=== PATIENT | male | born 1945 | race Caucasian/White ===

== ENCOUNTER 2024-05-25 10:02 | Emergency (ER) | payer MEDICARE, BC, SELFPAY ==
--- NOTE | ~2024-05-25 | XR_ITS ---
EXAMINATION: XR chest 2V DATE: 05/25/2024 10:40 INDICATION: Cough TECHNIQUE: PA and lateral views of the chest were obtained. COMPARISON: None FINDINGS: Large hiatal hernia which appears to contain both air-fluid level likely within the stomach as well a s a loop of bowel, likely the transverse colon. Calcified nodule in the lateral left midlung zone con sistent with old granulomatous disease. No other airspace opacities, pulmonary edema, pleural effusio n or pneumothorax. Heart size is normal. At least moderate severity right glenohumeral osteoarthritis with loose osteochondral body in the deep subscapular recess. Prior distal right clavicle resection. IMPRESSION: 1. No acute cardiopulmonary disease. 2. Large hiatal hernia which appears to contain both stomach and a segment of transverse colon. Reviewed, dictated and finalized at location A. IMPRESSION: 1. No acute cardiopulmonary disease. 2. Large hiatal hernia which appears to contain both stomach and a segment of t ransverse colon.
--- OUTSIDE RECORDS SUMMARY | 2024-05-25 10:12 | XMS_ITS | Clinical Summary ---
Author Organization [facility] Address [address] [place] [address] Care Team Providers Care Cigar Making Supervisor Name Role Phone Unavailable Primary Care Provider Unavailabl e Source Comments [facility],non-owned Affiliates and Associated Physician Practices is amultiple site organization consisting of ambulatory clinics and hospital sitesin [place], [place], [place] and [place]. This disclosure is being madepursuant to the Care Everywhere program and may not contain all information available regarding this patient. Last updated [email or web address] [email or web address] Social History Tobacco Use Types Packs/Day Years Used Date Smoking Tobacco: Never Assessed Sex and Gender Information Value Date Recorded Sex Assigned at Not on file Legal Sex Male 11:04 AM CDT Gender Identity Not on file Sexual Orientation Not on file Plan of Treatment Health Maintenance Due Date Last Done Comments HEPATITIS C SCREENING 05/24/1965 DTAP/TDAP/TD VACCINES (1 - Tdap) 05/28/1966 PNEUMOCOCCAL VACCINE 50+ (1 of 1 - PCV) 05/28/1997 ZOSTER VACCINE (1 of 2) 05/28/1997 Respiratory Syncytial Virus (RSV) Vaccine Pt: or over 60 yrs (1 - 1-dose 75+ series) 05/28/2022 COVID-19 VACCINE ( - season) 2023 DEPRESSION SCREENING 02/07/2024 INFLUENZA VACCINE (Season Ended) 2024 11/15/2017, 11/30/2016, 12/02/2015, Additional history exists HEPATITIS B VACCINE Aged Out No longe r eligible based on patient's age to complete this topic HIB VACCINE Aged Out No longer eligi ble based on patient's age to complete this topic HPV VACCINE Aged Out No longer eligi ble based on patient's age to complete this topic MENINGOCOCCAL (Group B) VACCINE SHARED DECISION-MAKING Aged Out No longer eligible based on patient's age to complete this topic MENINGOCOCCAL GROUPS A/C/Y/W VACCINE Aged Out No longer eligible based on patient's age to complete this topic Insurance [facility]
--- OUTSIDE RECORDS SUMMARY | 2024-05-25 10:13 | XMS_ITS | Clinical Summary ---
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 0 0 12/26/19 14 Active multivitamin capsule Take 1 capsule by mouth daily Active acetaminophen (TYLENOL) 500 mg tablet Take 1 tablet (500 mg total) by mouth every 6 (six) hours as needed for pain 07/27/19 19 Active PreviDent 5000 Booster Plus 1.1 % paste 09/26/19 21 Active Lactobacillus acidophilus (PROBIOTIC ORAL) Take by mouth Active pravastatin (PRAVACHOL) 40 mg tablet Take 1 tablet (40 mg total) by mouth daily 90 tablet 3 01/04/20 23 Active omeprazole (PriLOSEC) 40 mg capsuleIndicat ions:Hiatal hernia with GERD Take 1 capsule (40 mg total) by mouth daily 90 capsule 3 07/31/19 24 Active amLODIPine (NORVASC) 2.5 mg tablet TAKE 1 TABLET(2.5 MG) BY MOUTH DAILY 90 tablet 05/07/19 25 Active celecoxib (CeleBREX) 200 mg capsule TAKE 1 CAPSULE(200 MG) BY MOUTH TWICE DAILY NEEDED FOR PAIN. DO NOT TAKE FOR MORE THAN 7 DAYS CONSECUTIVELY 60 capsule 1 05/09/19 25 Active celecoxib (CeleBREX) 200 mg capsule Take 1 capsule (200 mg total) by mouth 2 (two) times a day as needed for pain Do not take for more than 7 days consecutively. 60 capsule 1 09/06/19 24 2024 Discontinued amLODIPine (NORVASC) 2.5 mg tablet TAKE 1 TABLET(2.5 MG) BY MOUTH DAILY 90 tablet 01/15/20 24 2024 Discontinued Active Problems Problem Noted Date Diagnosed Date IFG (impaired fasting glucose) 01/23/2024 Encounter for screening colonoscopy 02/03/2023 Essential hypertension 01/26/2023 Benign prostatic hyperplasia with nocturia 01/26 Overview (01/26/2023): didn't tolerate Flomax nocturia continues with weak stream recommended lashanda hollins Encounter for Medicare annual wellness exam 01/07 Assessment & Plan (01/23/2024 3:22 PM DISPOSAL PLANT OPERATOR): A(n) yearly Medicare Annual Wellness Visit has been performed today. Micah Golden is not up to date on screening tests. He is in need of Hepatitis B screen. He is not up to date on needed preventative vaccinations. We discussed healthy lifestyle habits, educational material has been given. Medications reviewed, changes documented as per the medical record and discussed with patient along with risks vs benefits. Specific topics reviewed: drugs, ETOH, and tobacco, importance of regular dental care, importance of regular exercise, importance of varied diet, limit TV, media violence, minimize junk food, and seat belts. Return in 6 months Assessment & Plan (01/26/2023 10:05 AM DISPOSAL PLANT OPERATOR): A(n) yearly Medicare Annual Wellness Visit has been performed today. Micah Golden is not up to date on screening tests. He is in need of Colon cancer screening. He is not up to date on needed preventative vaccinations; He is in need of Covid-19 (booster). We discussed healthy lifestyle habits, educational material has been given. Medications reviewed, changes documented as per the medical record and discussed with patient along with risks vs benefits. Return in 6 months Assessment & Plan (01/31/2022 11:26 AM DISPOSAL PLANT OPERATOR): A(n) yearly Medicare Annual Wellness Visit has been performed today. Micah Golden is up to date on screening tests. He is in need of None- no screening indicated at this time. He is not up to date on needed preventative vaccinations; He is in need of Covid-19 (booster). Continue current regimen Labs reviewed, look well. The blood counts have normalized Doing well Assessment & Plan (01/28/2021 1:09 PM DISPOSAL PLANT OPERATOR): Discussed lifestyle modifications, diet and exercise. Routine blood work ordered/reviewed today. Yearly vision and dental examinations. Medicare wellness completed - uptodate on screening and vaccines At risk for acute ischemic cardiac event 019 Assessment & Plan (09/17/2019 8:19 AM CDT): Continue focusing on lowering triglycerides and LDL. Decrease fatty/fried food and keep increasing your vegetables from your garden. Continue on the Pravastatin and baby aspirin Hiatal hernia with GERD 07/26/2018 Assessment & Plan (07/10/2020 4:42 PM CDT): Continuing omeprazole Assessment & Plan (09/17/2019 8:16 AM CDT): Discussed/ordered labs, Condition is stable encouraged healthy, low carbohydrate lifestyle and at least 150min/week of exercise, continue on Omeprazole Continue on current meds, encouraged healthy diet and exercise Avoid trigger foods including: carbonated beverages, caffeine, spicy, fried foods, tomatoes, cucumbers, and mint Avoid eating/drinking anything for at least 2 hours before bed. Sleep with bed propped. Discussed increased risk of cdif and vit B12 deficiency with alf use of PPI with pt, would like to remain on medication at this time Pure hypercholesterolemia 06/22/2013 Overview (05/11/2016): PURE HYPERCHOLESTEROLEM Assessment & Plan (07/26/2021 6:43 PM CDT): BP is well controlled Liver function, kidney function, blood counts are acceptable Blood sugar is good Cholesterol well controlled, continuing pravastatin 40 mg Assessment & Plan (01/28/2021 1:07 PM DISPOSAL PLANT OPERATOR): HPI: Condition is stable A&P: Discussed/ordered labs, encouraged healthy, low carbohydrate lifestyle and at least 150min/week of exercise, pt states that he thinks he is having some side effects from statin - will decrase from 80 mg to 40 mg. Assessment & Plan (07/10/2020 4:42 PM CDT): Status: controlled Current regimen: pravastatin 80 mg qhs Side effects: None reported Liver function tests: Results for MICAH GOLDEN ( ) as of 07/10/2020 16:42 Ref. Range 06/24/2020 08:11 Alk phos Latest Ref Range: 40 - 130 Units/L 82 AST Latest Ref Range: 10 - 50 Units/L 30 ALT Latest Ref Range: 7 - 55 Units/L 22 Assessment & Plan (09/17/2019 8:20 AM CDT): Continue focusing on lowering triglycerides and LDL. Decrease fatty/fried food and keep increasing your vegetables from your garden. Continue on the Pravastatin and baby aspirin Arthritis of knee 06/22/2013 Overview (05/11/2016): Arthritis of Knee Assessment & Plan (09/17/2019 8:16 AM CDT): Discussed/ordered labs, Condition is stable encouraged healthy, low carbohydrate lifestyle and at least 150min/week of exercise, continue on Tylenol as needed Dupuytren's contracture 06/22/2013 Overview (05/11/2016): Dupuytren contracture Nondependent alcohol abuse, continuous drinking behavior 06/22/2013 Overview (05/12/2016): ALCOHOL ABUSE-CONTINUOUS Assessment & Plan (01/28/2021 1:02 PM DISPOSAL PLANT OPERATOR): Discussed reducing amount of alcohol intake. Pt not ready at this time. Discussed at least cutting down from 6 to 5 beers daily , and slow wean. 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, ORGANIC ORIGN Rosacea 06/22/2013 Overview (05/13/2016): Rosacea Resolved Problems Problem Noted Date Diagnosed Date Resolved Date Iron deficiency anemia due t o chronic blood loss 11/30/2016 06/07/2017 Surgical follow-up care 06/11/2009 05/03/2017 Knee pain 10/20/2008 06/07/2017 Immunizations Immunization Administration Dates Next Due Influenza, Quad, Adjuvantate d, Intramuscular 12/08/2022,12/07/2021,11/20/2020 Influenza, Quadrivalent, Hig h Dose, Preservative Free, Intrr 11/20/2020,11/19/2019 Influenza, Quadrivalent, Spl it, Intramuscular 10/16/2014 Influenza, Trivalent, Adjuva nted, Intramuscular 12/12/2023,11/14/2017 Influenza, Trivalent, High D ose, Split, Preservative Free, Intramuscular 12/01/2018,11/30/2016,12/02/2015 Influenza, Unspecified 10/12/2022(Deferr ed: Patient Refused),02/06/2022(Deferred: Patient Refused),11/15/2017 Pfizer SARS-CoV-2 Monovalent Vaccination (12+ Yrs) PURPLE 12/14/2020,05/26/2020,04/28/2020 Pneumococcal Conjugate PCV 13 11/30/2016 Pneumococcal Polysaccharide PPV23 07/26/2018 Tdap 04/26/2010 ZOSTER Recombinant 07/12/2022,05/17/2022 Surgical History Surgery Date Site/Laterality Comments OTHER SURGICAL HISTORY 1977 neck fracture: fusion C1 C2 OTHER SURGICAL HISTORY 2007 OA right knee with meniscal tear: arthroscopy OTHER SURGICAL HISTORY 2008 OA right knee: TKR OTHER SURGICAL HISTORY 2009 OA left knee: total knee replacement OTHER SURGICAL HISTORY 2016 Upper gastrointestinal bleed with melena: Medical Management KNEE ARTHROPLASTY Left Knee replacement Medical History Medical History Date Comments Hx Other Medical neck fracture Hx Other Medical OA right knee w ith meniscal tear Hx Other Medical OA right knee Hx Other Medical OA left knee Hx Other Medical Rt. total knee replacement 1999; Comments: RADHA 12/26/2013 - Hx Other Medical Lt. total knee replacement 2000; Comments: [facility] 12/26/2013 - Hx Other Medical Cervical fx. wi th fusion 1977.; Comments: [facility] 12/26/2013 - Hx Other Medical Right AC resect ion with anterior acromioplasty on; Comments: [facility] 01/20/2014 - Hx Other Medical Upper gastroint estinal bleed with melena; Outcome: improved Hx Other Medical 01-12-16 Left un i-compartmental knee removal/left t; Comments: RADHA 01/25/2016 - Hiatal hernia with GERD 07/26/2018 Rosacea 06/22/2013 Rosacea Nondependent alcohol abuse, continuous drinking behavior 06/22/2013 ALCOHOL ABUSE-CONTINUOUS Pure hypercholesterolemia 06/22/2013 PURE H YPERCHOLESTEROLEM Dupuytren's contracture 06/22/2013 Dupuytre n contracture Arthritis of knee 06/22/2013 Arthritis of K nee Family History Medical History Relation Name Comments Lung cancer Father Cancer -lung; Breast cancer Mother Cancer -breast ; Other Other 1 Family history of Mother at age 90 from natural causes.; Other Other 2 Family history of Father at age 54 from lung cancer.; Relation Name Status Comments Father Mother Other 1 Other 2 Social History Tobacco Use Types Packs/Day Years Used Date Smoking Tobacco: Former Cigarettes 965 - 1984 Smokeless Tobacco: Never Tobacco Cessation:Counseling Given: Not Answered Alcohol Use Standard Drinks/Week Comments Yes 44 (1 standard drink = 0.6 oz pu re alcohol) Humiliation, Afraid, Rape, and Kick questionnair e Answer Date Recorded Fear of Current or Ex-Partner No Emotionally Abused No 01/24/2019 Physically Abused No 01/24/2019 Sexually Abused No 01/24/2019 Social Connection and Isolat ion Panel [NHANES] Answer Date Recorded Frequency of Communication w ith Friends and Family More than three times a week 01/24/2019 Frequency of Social Gatherin gs with Friends and Family Not on file 01/24/2019 Attends Anabaptism Services Never 01/24 Active Member of Clubs or Organizations Yes 01/24/2019 Attends Club or Organization Meetings 1 to 4 thom es per year 01/24/2019 Marital Status 01/24/2019 AUDIT-C Answer Date Recorded Q1: How often do you have a drink containing alcohol? 4 or more times a week 06/21/2023 Q2: How many drinks containi ng alcohol do you have on a typical day when you are drinking? 5 or 6 Q3: How often do you have si x or more drinks on one occasion? Daily or almost daily 06/21/2023 Overall Financial Resource Strain (CARDIA) Answe r Date Recorded Difficulty of Paying Living Expenses Not hard at all 01/24/2019 PHQ-2 Answer Date Recorded PHQ-2 Total Score (If total score is 3 or more points, staff should administer the PHQ-9) 0 01/23/2024 [facility] - Occupational Stress Questionnaire Answer Date Recorded Feeling of Stress Not at all 01/24/2019 Hunger Vital Sign Answer Date Recorded Worried About Running Out of Food in the Last Ye ar Never true 01/24/2019 Ran Out of Food in the Last Year Never true 01/24/2019 PRAPARE - Transportation Answer Date Re corded Lack of Transportation (Medical) No 01/24/2019 Lack of Transportation (Non-Medical) No 01/24/2019 Personal Safety Answer Date Recorded Have you ever been in or are you currently in a harmful physical or emotional relationship or is someone making you feel afraid or unsafe? Denies 06/21/2023 Education Answer Date Recorded What is the highest level of school you have completed or the highest degree you have received? Some college, no degree 01/24/2019 Sex and Gender Information Value Date Recorded Sex Assigned at Not on file Legal Sex Male 12:37 AM DISPOSAL PLANT OPERATOR Gender Identity Not on file Sexual Orientation Not on file Obstetrics History Last Filed Vital Signs Vital Sign Reading Time Taken Comments Blood Pressure 118/80 01/23/2024 3:16 PM DISPOSAL PLANT OPERATOR Pulse 78 01/23/2024 3:16 PM DISPOSAL PLANT OPERATOR Temperature 35.9 C (96.7 F) 01/23/2024 3:16 PM DISPOSAL PLANT OPERATOR Respiratory Rate 18 01/23/2024 3:16 PM DISPOSAL PLANT OPERATOR Oxygen Saturation 95% 01/23/2024 3:16 PM DISPOSAL PLANT OPERATOR Inhaled Oxygen Concentration - - Weight 81.6 kg (180 lb) 01/23/2024 3:16 PM DISPOSAL PLANT OPERATOR Height 172.7 cm (5' 8 ) 01/23/2024 3:16 PM DISPOSAL PLANT OPERATOR Body Mass Index 27.37 01/23/2024 3:16 PM DISPOSAL PLANT OPERATOR Plan of Treatment Health Maintenance Due Date Last Done Comments Hepatitis B Screening 05/28/1963 DTaP/Tdap/Td Vaccine (2 - Td or Tdap) 04/26/2020 04/26/2010 Covid-19 Vaccine (2023-2 5 season) 2024 12/12/2023, 06/16/2022, 12/14/2020, Additional history exists Depression Screening 01/22/2025 01/23/2024, 07/31/2023, 01/26/2023, Additional history exists Fall Risk Assessment 01/22/2025 01/23/2024, 06/21/2023, 01/26/2023, Additional history exists Well Visit 65+ 01/22/2025 01/23/2024, 01/07, 01/26/2022, Additional history exists Pneumococcal vaccine 65+ Completed 07/26/2018, 11/07 Hepatitis C Screening Completed 07/17/2019 Zoster Vaccine Completed 07/12/2022, 05/17/2022 Colon Cancer Screening-CT Colonography Discontinued 06/21/2023, 11/30/2012, 11/30/2012 Colon Cancer Screening-Colonoscopy Discontinued 06/21/2023, 11/30/2012, 11/30/2012 Colon Cancer Screening-DNA Stool Discontinued 06/21/2023, 11/30/2012, 11/30/2012 Colon Cancer Screening-FIT Discontinued 06/20, 12/14/2016, 11/30/2012, Additional history exists Colon Cancer Screening-FOBT Discontinued 06/06, 12/14/2016, 11/30/2012, Additional history exists Colon Cancer Screening-Sigmoidoscopy Discontinued 06/21/2023, 11/30/2012, 11/30/2012 Colorectal Cancer Screening Discontinued Influenza Vaccine Completed 12/12/2023, , 12/07/2021, Additional history exists Procedures Procedure Name Priority Date/Time Associated Diagnosis Comments COLONOSCOPY 06/21/2023 9:08 AM CDT HEPATITIS C ANTIBODY Routine 07/17/2019 8:23 AM CDT from Last 3 Months or Most Recently Relevant to Health Maintenance Results * Colonoscopy (06/21/2023 9:08 AM CDT) Anatomical Region Laterality Modality Other Narrative Procedure Note Navdeep Quiñonez MD - 06/21/2023 9:08 AM CDT [facility] Patient Name: Micah Golden Procedure Date: 06/21/2023 9:08 AM Date of : 1945 Admit Type: Outpatient Age: 78 Gender: Male Attending MD: Navdeep Quiñonez M.D. Room: [facility] 1 Note Status: Finalized Patient Profile: This is a 78 year old male. No family history ofcolon cancer. Procedure: Colonoscopy Indications: Screening for colorectal malignant neoplasm, Last colonoscopy: November 2012 Referring MD: Keo Gomez M.D. Providers: Navdeep Quiñonez M.D. Impression: - One small 3 mm polyp in the rectum. Resected and retrieved - Extensive diverticulosis in the sigmoid colon. - Internal hemorrhoids. - No specimens collected. Recommendation: - Continue present medications. - Repeat colonoscopy in 5 years for surveillance. Medicines: Monitored Anesthesia Care Complications: No immediate complications. Estimated Blood Loss: Estimated blood loss: none. Procedure: Pre-Anesthesia Assessment: - Prior to the procedure, a History and Physicalwas performed, and patient medications and allergieswere reviewed. The patient's tolerance of previous anesthesia was also reviewed. The risks andbenefits of the procedure and the sedation options and risks were discussed with the patient. All questions were answered, and informed consent was obtained. Prior Anticoagulants: The patient has taken noanticoagulant or antiplatelet agents. ASA Grade Assessment: Per anesthesia note and evaluation. After reviewing the risks and benefits, the patient was deemed in satisfactory condition to undergo the procedure. The benefits, risks and alternatives of theprocedure and sedation were discussed and informed consentwas obtained. All questions were answered. Please referto the signed informed consent document in the medical record. The bowel preparation used was Miralax and bisacodyl tablets via split dose instruction. The scope was passed under direct vision. The Pediatric Colonoscope PCF-H190L [id number] was introducedthrough the anus and advanced to the the cecum, identifiedby appendiceal orifice and ileocecal valve. Thequality of the bowel preparation was good. Bowel prep was administered using a split dose. Findings: The perianal and digital rectal examinations were normal. The cecum appeared normal. The descending colon, transverse colon and ascending colon appeared normal. Multiple small and large-mouthed diverticula were found in thesigmoid colon. Internal hemorrhoids were found during retroflexion. The hemorrhoids were medium-sized A 3 mm polyp was found in the rectum. The polyp was sessile. Thepolyp was removed with a jumbo cold forceps. Resection and retrieval were complete. Electronically signed by Navdeep Quiñonez M.D. Navdeep Quiñonez M.D. 06/21/2023 10:19:55 AM Number of Addenda: 0 Note Initiated On: 06/21/2023 9:08 AM Procedure Code(s): --- Professional --- 66055, Colonoscopy, flexible; with biopsy, single or multiple Diagnosis Code(s): --- Professional --- Z12.11, Encounter for screening for malignant neoplasm of colon K64.8, Other hemorrhoids K57.30, Diverticulosis of large intestine without perforation orabscess without bleeding D12.8, Benign neoplasm of rectum CPT copyright 2020 [employer]. All rights reserved. The codes documented in this report are preliminary and upon icd 9 coder reviewmay be revised to meet current compliance requirements. Recognized by the [employer] for promoting quality in endoscopy Navdeep Quiñonez MD ENDOSCOPY PROCEDURES Final Result * Hepatitis C antibody (07/17/2019 8:23 AM CDT) Hep C Ab NON-REACTI VE NON-REACT [place] [facility] SIGNAL TO CUT-OFF 0.01 <1.00 [facility] Comment: HCV antibody was non-reactive. There is no laboratory evidence of HCV infection. In most cases, no further action is required. However, if recent HCV exposure is suspected, a test for HCV RNA (test code 33660) is suggested. For additional information please refer to http://education.[employer]/faq/LUO51j0 (This link is being provided for informational/ educational purposes only.) 07/17/2019 8:23 AM CDT 07/17/2019 8:26 AM CDT Narrative [facility] - 07/19/2019 5:58 AM CDT FASTING:YES FASTING: YES Keo Gomez MD LAB MICROBIOLOGY - GENERAL ORDERABLES Final Result [facility] [id number] [place] [id number] from Last 3 Months or Most Recently Relevant to Health Maintenance Insurance MEDICARE [facility] MEDICARE [facility] MEDICARE [facility] Advance Directives For more information, please contact: [phone] * Full Code (Latest Code Status on File) Date Activated Date Inactivated Comments 06/21/2023 9:09 AM 06/21/2023 3:05 PM * Full Code Date Activated Date Inactivated Comments 06/21/2023 9:09 AM 06/21/2023 9:09 AM Care Teams Heavy Rail Train Operator Relationship Specialty Start Date End Date Keo Gomez MD PCP - General 07/19/21
--- OUTSIDE RECORDS SUMMARY | 2024-05-25 10:13 | XMS_ITS | Referral Summary ---
Author Organization [facility] Building [address] Address [address] [place] [address] Care Team Providers Care [employer] Driver Name Role Phone Keo Gomez MD Primary [...] 01/07 Assessment & Plan (01/23/2024 3:22 PM [employer]): A(n) yearly Medicare Annual Wellness [...] months Assessment & Plan (01/26/2023 10:05 AM [employer] OPERATOR): A(n) yearly Medicare Annual Wellness [...] months Assessment & Plan (01/31/2022 11:26 AM [employer] OPERATOR): A(n) yearly Medicare Annual Wellness [...] well Assessment & Plan (01/28/2021 1:09 PM [employer] OPERATOR): Discussed lifestyle modifications, diet and [...] of cdif and vit B12 deficiency with fpc use of PPI with pt, would like to remain on medication at this time Pure hypercholesterolemia 06/22/2013 Overview (05/11/2016): PURE HYPERCHOLESTEROLEM Assessment & Plan (07/26/2021 6:43 PM CDT): BP is well controlled Liver function, kidney function, blood counts are acceptable Blood sugar is good Cholesterol well controlled, continuing pravastatin 40 mg Assessment & Plan (01/28/2021 1:07 PM [employer] OPERATOR): HPI: Condition is stable A&P: [...] ABUSE-CONTINUOUS Assessment & Plan (01/28/2021 1:02 PM [employer] OPERATOR): Discussed reducing amount of alcohol [...] PPV23 07/26/2018 Tdap 04/26/2010 ZOSTER Recombinant 07/12/2022,05/17/2022 Social History Tobacco Use Types Packs/Day Years Used Date Smoking Tobacco: Former Cigarettes 1 20 1 965 - 1985 Smokeless Tobacco: Never Tobacco Cessation:Counseling Given: Not [...] and Family Not on file 01/24/2019 Attends [employer] Services Never 01/24 Active Member of Clubs [...] staff should administer the PHQ-9) 0 01/23/2024 [facility] - Occupational [...] on file Legal Sex Male 12:37 AM [employer] OPERATOR Gender Identity Not on file Sexual Orientation Not on file Last Filed Vital Signs Vital Sign Reading Time Taken Comments Blood Pressure 118/80 01/23/2024 3:16 PM [employer] O[employer] Pulse 78 01/23/2024 3:16 PM [employer] OPERATOR Temperature 35.9 C (96.7 F) 01/23/2024 3:16 PM [employer] OPERATOR Respiratory Rate 18 01/23/2024 3:16 PM [employer] OPERATOR Oxygen Saturation 95% 01/23/2024 3:16 PM [employer] OPERATOR Inhaled Oxygen Concentration - - Weight 81.6 kg (180 lb) 01/23/2024 3:16 PM [employer] OPERATOR Height 172.7 cm (5' 8 ) 01/23/2024 3:16 PM [employer] OPERATOR Body Mass Index 27.37 01/23/2024 3:16 PM [employer] OPERATOR Plan of Treatment Not on file Procedures Procedure Name Priority Date/Time Associated Diagnosis Comments COLONOSCOPY 06/21/2023 9:08 AM CDT HEPATITIS C ANTIBODY Routine 07/17/2019 8:23 AM CDT from Last 3 Months or Most Recently Relevant to Health Maintenance Results * Colonoscopy (06/21/2023 9:08 AM CDT) Anatomical Region Laterality Modality Other Narrative Procedure Note Navdeep Quiñonez MD - 06/21/2023 9:08 AM CDT Center Patient Name: Micah Golden Procedure Date: 06/21/2023 9:08 AM Date of : 1945 Admit Type: Outpatient Age: 78 Gender: Male Attending MD: Navdeep Quiñonez M.D. Room: [facility]COPY ROOM 1 Note Status: Finalized Patient [...] under direct vision. The Pediatric Colonoscope PCF-H190L [id number] was introducedthrough the anus and advanced to [...] 9:08 AM Procedure Code(s): --- Professional --- 69089, Colonoscopy, flexible; with biopsy, single or multiple Diagnosis Code(s): --- Professional --- Z12.11, Encounter for screening for malignant neoplasm of colon K64.8, Other hemorrhoids K57.30, Diverticulosis of large intestine without perforation orabscess without bleeding D12.8, Benign neoplasm of rectum CPT copyright 2020 [employer]. All rights reserved. The codes documented in this report are preliminary and upon supervisor corduroy cutting reviewmay be revised to meet current compliance requirements. Recognized by the [employer] for promoting quality [...] a test for HCV RNA (test code 25786) is suggested. For additional information please refer to http://education.[employer].amaysim/faq/QGD55w1 (This link is being provided for informational/ educational purposes only.) 07/17/2019 8:23 AM CDT 07/17/2019 8:26 AM CDT Narrative [facility] - 07/19/2019 5:58 AM CDT FASTING:YES FASTING: YES Keo Gomez MD LAB MICROBIOLOGY - GENERAL ORDERABLES Final Result [facility] [id number] [place] [id number] from Last 3 Months or Most Recently Relevant to Health Maintenance Insurance MEDICARE [facility] MEDICARE [facility] MEDICARE [facility] Advance Directives For more information, please contact: [phone] * Full Code (Latest Code Status on File) Date Activated Date Inactivated Comments 06/21/2023 9:09 AM 06/21/2023 3:05 PM * Full Code Date Activated Date Inactivated Comments 06/21/2023 9:09 AM 06/21/2023 9:09 AM Care Teams Refrigerated Company Driver Relationship Specialty Start Date End Date Robbins, Keo A., MD PCP - General 07/19/21
[2024-05-25 10:14] VITALS: BP 151/89; PULSE 80; RESP 20; TEMP 36.9; O2SAT 96
--- NOTE | 2024-05-25 10:18 | ED.URI ---
HPI - URI/Sore Throat General Chief Complaint: Upper Respiratory Infection Stated Complaint: Cough/Chest Congestioin Time Seen by Provider: 05/25/24 10:26 Source: patient and RN notes reviewed Mode of arrival: ambulatory Limitations: no limitations History of Present Illness HPI Narrative: 78-year-old male presents with concern for 3 day history of cough, nasal drainage, chest congestion, shortness of breath, wheezing. Reports general malaise, denies fever. Reports he is taking [id number] medications without improvement. MD elicited complaint: cough Related Data Home Medications ?Medication ?Instructions ?Recorded ?Confirmed ?Last Taken ?Type amlodipine 2.5 mg tablet mg 05/25/24 Unknown History omeprazole 40 mg capsule,delayed mg 05/25/24 Unknown History release pravastatin 40 mg tablet mg 05/25/24 Unknown History Allergies Allergy/AdvReac Type Severity Reaction Status Date / Time No Known Allergies Allergy Verified 05/25/24 10:18 Review of Systems Review of Systems: CONSTITUTIONAL: Reports malaise. Denies chills, sweats, or fever. EYES: Denies visual changes, redness, or discharge. ENT: Reports rhinorrhea, congestion CARDIOVASCULAR: Denies chest pain, palpitations, or edema. RESPIRATORY: Reports cough, chest congestion, dyspnea. GASTROINTESTINAL: Denies abdominal pain, nausea, vomiting, diarrhea SKIN: Denies rash or itching. MUSCULOSKELETAL: Denies myalgia. NEUROLOGIC: Denies headache. All systems reviewed & are unremarkable except as noted in HPI and below PMFSH Comments At time of signature, agree with nursing past medical, surgical, social and family history. There is no relevant family history pertinent to the presenting complaint Exam Narrative: GENERAL: Well-appearing, well-nourished, and in no acute distress. HEAD: Normocephalic EYES: PERRLA, conjunctivae clear ENT: Nares clear. Mucous membranes moist. TM pearly carr with sharp light reflex bilaterally; no tragal tenderness. Oropharynx not erythematous without lesions. Tonsils not enlarged and without exudate, no drooling, no hoarseness, no trismus, uvula midline. NECK: Supple. No lymphadenopathy CHEST: Scattered wheezing, rhonchi, decreased breath sounds on the left lower lobe. No rales, or stridor. No respiratory distress, speaks in full sentences. HEART: Regular rate and rhythm. No murmur heard. SKIN: Warm, dry, no rash. NEURO: Alert and oriented x3. PSYCH: Normal mood and affect Course Course Emergency Course: Patient is aware of diagnosis, understands and agrees to treatment plan. Anticipatory guidance given. Patient agrees to follow-up as directed and is aware of reasons to seek care at the emergency department. Portions of this record may have been created with voice recognition software Level of Care: Express Care Visit Reevaluation(s) Reevaluation #1: Slight improvement in wheezing, patient reports only slight improvement and breathing. Date: 06/12/24 Time: 11:10 Reevaluation #2: Lung sounds improved after 2nd DuoNeb only mild scattered wheeze noted. Patient reports improvement. Date: 05/25/24 Time: 11:29 Vital Signs Vital signs: Vital Signs Temperature 98.4 F 05/25/24 10:14 Pulse Rate 80 05/25/24 10:14 Respiratory Rate 20 05/25/24 10:14 Blood Pressure 151/89 H 05/25/24 10:14 Pulse Oximetry 96 05/25/24 10:14 Oxygen Delivery Room Air 05/25/24 10:14 Temperature 98.4 F 05/25/24 10:14 Pulse Rate 77 05/25/24 10:54 Respiratory Rate 20 05/25/24 10:54 Blood Pressure 151/89 H 05/25/24 10:14 Pulse Oximetry 94 05/25/24 10:54 Oxygen Delivery Room Air 05/25/24 10:14 Reviewed. MDM - URI/Sore Throat MDM Narrative Medical decision making narrative: Differential diagnosis considered: Cardoso virus, strep pharyngitis, allergic rhinitis, upper respiratory tract infection, sinusitis, rhinosinusitis, nasopharyngitis. viral pharyngitis, otitis media, otitis externa, pneumonia, bronchitis, viral cough syndrome, viral syndrome, and influenza. Exam findings show no acute concerns or changes; patient is non-toxic appearing and is in no distress. Patient is appropriate for outpatient treatment and follow-up. Lab Data Attestation: I reviewed the patient's lab results. Critical Care Time Critical Care Time Critical Care Time: No Discharge Plan Discharge Clinical Impression: Bronchitis Patient Disposition: Home Condition: Stable Instructions: Acute Bronchitis (ED), How to Use a Metered-Dose Inhaler and a Spacer (ED) Additional Instructions: Viral illness may last between 7-21 days; antibiotics do not cure viral illness and are not recommended at this time. Recommend antihistamine such as Benadryl at night time and Zyrtec or Julisa during the day Use inhaler as needed for cough, wheezing, shortness of breath or chest tightness. Also, recommend symptomatic treatment includes: rest, fluids, and increase humidity of the air at home. Recommend Acetaminophen as directed on the bottle to reduce fever, pain, headache. Avoid smoking/second-hand smoke. Please schedule a follow-up visit with your personal physician for further evaluation and treatment within 3-5days. Including recheck and discussion of your blood pressure. If your symptoms persist, change or worsen significantly before you can contact your personal physician then please, without delay, go to the emergency department for further evaluation. Patient Language: Jordanian Prescriptions: New prednisone 20 mg tablet 40 mg PO DAILY 5 Days Qty: 10 0RF albuterol sulfate 90 mcg/actuation HFA aerosol inhaler 2 puff INHALATION QID PRN (Reason: shortness of breath or wheezing) Qty: 8.5 0RF (DME) BreatheRite Valved MDI Chamber Spacer See Rx Instructions .Route Qty: 1 0RF Rx Instructions: As directed No Action pravastatin 40 mg tablet amlodipine 2.5 mg tablet omeprazole 40 mg capsule,delayed release(DR/EC) Follow-up/Referrals: Patricia,Keo Razo MD [Primary Care Provider] - Time of Disposition: 11:35
[2024-05-25] MEDS: IPRATROPIUM 0.5 MG/ALBUTEROL SULFATE 2.5 MG AMPUL.NEB 3 ML INHALATION ×2 (10:40→11:14)
[2024-05-25 10:54] VITALS: PULSE 77; RESP 20; O2SAT 94
[2024-05-25 11:41] VITALS: PULSE 85; RESP 20; O2SAT 98
== END 2024-05-25 11:38 | disposition home or self-care (01) ==
PROVIDERS: Emergency Provider Nurse Practitioner; PCP Family Medicine
DX: J40 Bronchitis, not specified as acute or chronic (principal); I10 Essential (primary) hypertension; E78.00 Pure hypercholesterolemia, unspecified
CPT/HCPCS: 71046; 94640; 99203; G0463